=== PATIENT | female | born 1940 | race African-American/Black ===

== ENCOUNTER 2020-08-03 11:21 | Emergency (ER) | payer OTHER ==
--- NOTE | 2020-08-03 11:57 | PDOC ---
History of Present Illness - General Chief Complaint: Nausea/Vomiting Stated Complaint: NAUSEA/VOMITING Time Seen by Provider: 08/03/20 11:57 Past History - Medical History Allergies/Adverse Reactions: Allergies Allergy/AdvReac Type Severity Reaction Status Date / Time No Known Allergies Allergy Verified 05/05/19 07:54
[2020-08-03 12:05] VITALS: TEMP 97.9; BMI 39.1
--- NOTE | 2020-08-03 12:09 | PDOC ---
Attending Attestation - Resident Resident Name: Jesse Griggs - ED Attending Attestation I have performed the following: I have examined & evaluated the patient, The case was reviewed & discussed with the resident, I agree w/resident's findings & plan, Exceptions are as noted - HPI HPI: 08/03/20 12:08 80y F hx of htn, hl, cad, ckd, dm presents with n/v and feeling dizzy for the past few hours. Patient feeling well and waking up this morning. She took a dose of her tramadol at approx 7am and accidentally took another dose at 9am. Stgarting approx 9:30am she started to feel nauseus and alittle lightheaded. The patient denies any headache, neck pain, chest pain, breath, abdominal pain, diarrhea, blood per rectum, f/c, cough, focal numbness/tingling/weakness. she does note that the dizziness seems to worsen when she turns her head left/right but denies room spining sensation. Patient vomiting was nonbilious nonbloody. She has never felt similar symptoms in the past. PMD: Vilma - Physicial Exam PE: 08/03/20 12:22 GENERAL: The patient is awake, alert, and fully oriented, Nontoxic - in no acute distress. HEAD: Normocephalic, atraumatic. EYES: extraocular movements intact, sclera anicteric, conjunctiva clear. nystagmus noted when turning head b/l ENT: Normal voice, Moist mucous membranes. NECK: Normal range of motion, supple LUNGS: Breath sounds equal, clear to auscultation bilaterally. No wheezes, no rhonchi, no rales. HEART: Regular rate and rhythm, normal S1 and S2 without murmur, rub or gallop. ABDOMEN: Soft, nontender, No guarding, no rebound. No CVA tenderness EXTREMITIES: Normal range of motion, no edema. NEUROLOGICAL: No facial assymetry, Normal speech, rapid alternating movements b/l intact, moving all4 ext spontaneously and symmetrically, normal finger to nose PSYCH: Normal mood, normal affect. SKIN: Warm, Dry, normal turgor, - Medical Decision Making 08/03/20 12:23 ddx patient symptoms include but is not limited to medication side effect, consider vertigo, anemia, metabolic derangement, acs will obtain labs, ekg, cardiac profiole will give amado blanca 08/03/20 13:50 pt feeling improved. no more vomiting after her antiemetic. ashkan griffiny lightheadness, no notable nystagmus will dc with outpt fu Heart Score/ECG Review - ECG Impressions Comment:: 08/03/20 12:24 Twelve-lead EKG was performed and reviewed by me. There is normal sinus rhythm with a normal rate. rate of 68 The axis is normal. The intervals are normal. There is normal R wave progression nonspecific tw changes. Discharge - Discharge Information Problems reviewed: Yes Clinical Impression/Diagnosis: Nausea and vomiting Qualifiers: Vomiting type: unspecified Vomiting Intractability: non-intractable Qualified C ode(s): R11.2 - Nausea with vomiting, unspecified Condition: Stable Disposition: HOME - Admission No - Follow up/Referral Referrals: Johan Joseph MD [Primary Care Provider] - - Patient Discharge Instructions Patient Printed Discharge Instructions: DI for Nausea -- Adult, DI for Vomiting -- Adult Additional Instructions: You were seen with nausea and vomiting in the setting of recent tramadol use. Your labs were unconcerning, and your CT did not show any acute issues. Please follow up with your primary care doctor within one week. Return to the ER if you develop new or worsening symptoms. - Post Discharge Activity
--- OUTSIDE RECORDS SUMMARY | 2020-08-03 12:12 | XMS ---
:1940 Author Organization [facility] Care Team Providers Name Role Phone KarlaBrad bush Unavailable Unavailable Digiorno, Brad Unavailable Unavailable Digiorno, Brad Unavailable Unavailable Innabi, Prado Unavailable Unavailable Innabi, Prado Unavailable Unavailable Innabi, Prado Unavailable Unavailable Innabi, Prado Unavailable Unavailable Innabi, Prado Unavailable Unavailable Innabi, Prado Unavailable Unavailable Innabi, Prado Unavailable Unavailable Innabi, Prado Unavailable Unavailable Innabi, Prado Unavailable Unavailable Innabi, Prado Unavailable Unavailable Innabi, Prado Unavailable Unavailable Innabi, Prado Unavailable Unavailable Innabi, Prado Unavailable Unavailable Innabi, Prado Unavailable Unavailable Innabi, Prado Unavailable Unavailable Innabi, Prado Unavailable Unavailable Re-disclosure Warning The records that you are about to access may contain information from federally- assisted alcohol or drug abuse programs. If such information is present, then the following federally mandated warning applies: This information has been disclosed to you from records protected by federal confidentiality rules (42 CFR part 2). The federal rules prohibit you from making any further disclosure of this information unless further disclosure is expressly permitted by the written consent of the person to whom it pertains or as otherwise permitted by 42 CFR part 2. A general authorization for the release of medical or other information is NOT sufficient for this purpose. The Federal rules restrict any use of the information to criminally investigate or prosecute any alcohol or drug abuse patient.The records that you are about to access may contain highly sensitive health information, the redisclosure of which is protected by Article 27-F of the [place] State Public Health law. If you continue you may haveaccess to information: Regarding HIV / AIDS; Provided by facilities licensed or operated by the [facility] Office of Mental Health; or Provided by the [facility] Office for People With Developmental Disabilities. If such information is present, then the following [facility] mandated warning applies: This information has been disclosed to you from confidential records which are protected by state law. State law prohibits you from making any further disclosure of this information without the specific written consent of the person to whom it pertains, or as otherwise permitted by law. Any unauthorized further disclosure in violation of state law may result in a fine or nursing home sentence or both. A general authorization for the release of medical or other information is NOT sufficient authorization for further disclosure. Encounters Encounter Providers Location Date Indications Data Source(s ) Outpatient Attender: Johan Ordonez 07/10/2020 [facility] Inn[facility]: 11:[facility] Johan GARCES InnabiReferrer: Johan Joseph Attender: Brad 06/26/2020 [facility] EDT Office Attender: Brad Savage 06/26/2020 12:00:00 AM EDT [facility] ([facility]) Office Insurance Providers Payer name Policy type Policy ID Covered Covered libertarian's Policy P sury / Coverage libertarian ID relationship to Castellanos Inf ormation type castellanos UNITED O [id number] 01 [id number] HEALTHCARE MCARE OPD AARP MEDICARE [id number] [place] [id number] SP [id number] HEALTHCARE (MEDICARE) Problems, Conditions, and Diagnoses Code Display Name Description Problem Type Effective Dates Data Source(s) E55.9 Vitamin D VITAMIN D Problem 11/01/2019 [facility] ([facility] deficiency, DEFICIENCY, 12:00:00 AM EST [facility], unspecified UNSPECIFIED PC) M54.5 Low back pain LOW BACK PAIN Diagnosis 07/10/2020 [facility] 11:30:00 AM EDT Medical C enter M25.551 Pain in right hip PAIN IN RIGHT HIP Diagnosis 07/10/2020 [facility] 11:30:00 AM EDT Medical C enter Surgeries/Procedures Procedure Description Date Indications Data Source(s) Documentation of current 06/26/2020 [facility] ([facility] (procedure) 12:00:00 AM EDT [facility] ) Documentation of current 06/26/2020 [facility] ([facility] medications (procedure) 12:00:00 AM EDT [facility] hendricks ) OFFICE OUTPATIENT VISIT 06/26/2020 [facility] Documentation of current 11/01/2019 [facility] ([facility] medications (procedure) 12:00:00 AM EST Viri hendricks ) Documentation of current 11/01/2019 [facility] ([facility] medications (procedure) 12:00:00 AM EST [facility] he[facility] ) Documentation of current 11/01/2019 [facility] ([facility] medications (procedure) 12:00:00 AM EST [facility] hendricks ) Documentation of current 11/01/2019 [facility] ([facility] medications (procedure) 12:00:00 AM EST Vir[facility] hendricks ) OFFICE OUTPATIENT VISIT 11/01/2019 [facility] ([facility] 15 MINUTES 12:00:00 AM [facility], ) Social History Code Duration Value Status Description Data Source(s ) Smoking 06/26/2020 quit tobacco use completed quit tobacco use [facility] (St 12:00:00 AM EDT 1971 (has smoked 1970 (has smok ed [facility], "occasionally" "occasionally" ) prior) denies prior) denies EtOH EtOH 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, 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, 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 Smoking 06/26/2020 Unknown if ever completed Unknown if ever [facility] (St 12:00:00 AM EDT smoked smoked [facility] ) Vital Signs ID Date Data Source UNK Name Value Range Interpretation Code Description Data Source(s) Heart rate 72 /min 72 /min [facility] Respiratory rate 18 /min 18 /min [facility] ( [facility], ) Body mass index 39.8 kg/m2 39.8 kg/m2 [facility] ([facility] t [facility] (BMI) [Ratio] Medical, ) Diastolic blood 66 mm[Hg] 66 mm[Hg] [facility] ([facility], ) Systolic blood 130 mm[Hg] 130 mm[Hg] [facility] ([facility], ) Body [facility] 232 lb [facility] Body height 64 in 64 in [facility] ([facility] Heart rate 78 /min 78 /min [facility] ([facility]) Respiratory rate 14 /min 14 /min [facility] ( [facility]) Body mass index 38.3 kg/m2 38.3 kg/m2 [facility] ([facility] (BMI) [Ratio] [facility] ) Diastolic blood 78 mm[Hg] 78 mm[Hg] [facility] Systolic blood 130 mm[Hg] 130 mm[Hg] [facility] ([facility], ) Body weight 223 lb 223 lb [facility], ) Body height 64 in 64 in [facility] ([facility], )
[2020-08-03] MEDS ORDERED: ONDANSETRON 4 MG/2 ML VIAL IVPUSH ONE (12:13)
--- NOTE | 2020-08-03 12:20 | PDOC ---
History of Present Illness - General Chief Complaint: Nausea/Vomiting Stated Complaint: NAUSEA/VOMITING Time Seen by Provider: 08/03/20 11:57 - History of Present Illness Initial Comments: HPI: 08/03/20 12:14 80 yo F PMH HTN, HLD, IDDM, CKD, CAD s/p NC (1992, no stent), arthritis, presenting with nausea and vomiting. Daughter present in the room. Ms. Burleson notes that she was recently started on tramadol on Thursday for her arthritis up to 4 times a day, but she had only been taking one pill a day until today. This morning, she took a pill at 0700 and then another at 0900 because she forgot that she took the first pill. Subsequently became nauseous and has had two episodes of nbnb vomiting. Further complains of lightheadedness. Notes that she has chronic constipation, but had her last bowel movement yesterday. Denies CP, SOB, DONAHUE, abd pain, urinary symptoms. ROS: GENERAL/CONSTITUTIONAL: denies fever, chills, diaphoresis, generalized weakness HEAD, EYES, EARS, NOSE AND THROAT: denies rhinorrhea, nasal congestion, throat pain, throat swelling NEUROLOGIC: denies headache, focal weakness, dizziness, unsteady gait, seizure, mental status changes CARDIOVASCULAR: endorses lightheadedness. Denies chest pain, syncope, palpitations, irregular heart rate, peripheral edema RESPIRATORY: denies cough, shortness of breath, dyspnea with exertion GASTROINTESTINAL: endorses chronic constipation. Denies abdominal pain, abdominal distension, nausea, vomiting, diarrhea, melena, hematochezia GENITOURINARY: denies dysuria, frequency, urgency MUSCULOSKELETAL: denies myalgia, arthralgia, joint swelling, back pain, neck pain SKIN: denies rash, itching PE: Gen: well-developed, well-nourished, NAD Neuro: AAOX4, CN II-XII intact, FTN intact, EOMI, small pupils HEENT: atraumatic, normocephalic Neck: trachea midline, supple CV: regular rate, regular rhythm, no murmurs, rubs, or gallops Pulm: CTA b/l, no wheezing Abd: soft, non-distended, non-tender MSK: full ROM, intact pulses Extr: no edema, no deformities Skin: warm, dry MDM: Concern for medication side effect v ACS v intracerebral pathology. - CBC, CMP - trop - CXR - head CT - Zofran - reassess EKG normal sinus at 68 bpm, NM 180, QRS 72, QTc 414, isolated inverted T waves in III 08/03/20 13:07 CXR without acute pathology. 08/03/20 13:26 WBC 11.7, otherwise unremarkable. 08/03/20 13:46 BUN 23.1, Cr 1.6. Glucose 200. Trop negative. CMP otherwise unremarkable. Per daughter, patient has known GFR of 30. Will f/u CT head, symptomatic improvement. 08/03/20 13:57 Patient reassessed, feeling much improved. Will f/u CT scan. Assuming scan is negative, will plan to dc for further outpatient management, precautions for tramadol use. 08/03/20 15:16 CT head: [id number] volume loss without CT evidence of acute intracranial pathology. Will dc for further outpatient management. Past History - Medical History Allergies/Adverse Reactions: Allergies Allergy/AdvReac Type Severity Reaction Status Date / Time No Known Allergies Allergy Verified 08/03/20 12:04 COPD: No HTN: Yes - Reproductive History Is Patient Now?: No - Psycho-Social/Smoking History Smoking History: Unknown if ever smoked - Substance Abuse Hx (Audit-C & DAST Scrn) In the last yr the pt used illegal drug/Rx for NonMed reason: No Score: Yes response is considered Positive: 0 Screen Result (Positive result requires Nsg. DAST-10): Negative *Physical Exam - Vital Signs Last Vital Signs Temp Pulse Resp BP Pulse Ox 97.9 F 62 16 146/78 100 08/03/20 11:25 08/03/20 11:25 08/03/20 11:25 08/03/20 11:25 08/03/20 11:25 ED Treatment Course - LABORATORY CBC & Chemistry Diagram: 08/03/20 13:00 08/03/20 13:00 - RADIOLOGY Radiology Studies Ordered: Category Date Time Status HEAD CT WITHOUT CONTRAST [CT] Stat CT Scan 08/03/20 12:13 Ordered CHEST X-RAY PORTABLE* [RAD] Stat Radiology 08/03/20 12:13 Ordered Discharge - Discharge Information Problems reviewed: Yes Clinical Impression/Diagnosis: Nausea and vomiting Qualifiers: Vomiting type: unspecified Vomiting Intractability: non-intractable Qualified Code(s): R11.2 - Nausea with vomiting, unspecified Condition: Stable Disposition: HOME - Admission No - Follow up/Referral Referrals: Johan Joseph MD [Primary Care Provider] - - Patient Discharge Instructions Patient Printed Discharge Instructions: DI for Nausea -- Adult, DI for Vomiting -- Adult Additional Instructions: You were seen with nausea and vomiting in the setting of recent tramadol use. Y our labs were unconcerning, and your CT did not show any acute issues. Please follow up with your primary care doctor within one week. Return to the ER if you develop new or worsening symptoms. - Post Discharge Activity
[2020-08-03 13:11] LABS: BASO % 0.7 % (0-2.0); EOS % 0.7 % (0-4.5); HEMATOCRIT 36.5 % (32.4-45.2); HEMOGLOBIN 12.2 GM/dL (10.7-15.3); LYMPH % 18.3 % (8-40); MCH 30.1 pg (25.7-33.7); MCHC 33.4 g/dl (32.0-36.0); MEAN CELL VOLUME 89.9 fl (80-96); MEAN PLT VOLUME 10.1 fl (7.5-11.1); MONO % 5.3 % (3.8-10.2); PLATELET COUNT 272 K/MM3 (134-434); RBC 4.06 M/mm3 (3.60-5.2); RDW 14.4 % (11.6-15.6); WHITE BLOOD COUNT 11.7 K/mm3 (4.0-10.0)
[2020-08-03 13:45] LABS: ALBUMIN 3.4 g/dl (3.4-5.0); ALK PHOS 125 U/L (45-117); ANION GAP 6 MMOL/L (8-16); BILIRUBIN,TOTAL 0.3 mg/dL (0.2-1); BLOOD UREA NITROGEN 23.1 mg/dL (7-18); CALCIUM 9.2 mg/dL (8.5-10.1); CHLORIDE 104 mmol/L (98-107); CO2 27 mmol/L (21-32); CREATININE 1.6 mg/dL (0.55-1.3); GLUCOSE,RANDOM 200 mg/dL (74-106); POTASSIUM 4.9 mmol/L (3.5-5.1); SGOT/AST 26 U/L (15-37); SGPT/ALT 26 U/L (13-61); SODIUM 138 mmol/L (136-145); TOT PROT 8.1 g/dl (6.4-8.2)
--- NOTE | 2020-08-03 14:46 | EKG ---
Test Reason : Blood Pressure : / mmHG Vent. Rate : 068 BPM Atrial Rate : 068 BPM P-R Int : 180 ms QRS Dur : 072 ms QT Int : 390 ms P-R-T Axes : 069 006 004 degrees QTc Int : 414 ms NORMAL SINUS RHYTHM MINIMAL VOLTAGE CRITERIA FOR LVH, MAY BE NORMAL VARIANT WHEN COMPARED WITH ECG OF 20-MAY-2010 07:44, NONSPECIFIC T WAVE ABNORMALITY, WORSE IN ANTERIOR LEADS Confirmed by LEÓN ABBASI MD ([id number]) on 08/03/2020 2:46:37 PM Referred By: Confirmed By:LEÓN ABBASI MD
[2020-08-03 15:28] VITALS: BP 134/68; PULSE 60
== END 2020-08-03 15:28 | disposition home or self-care (01) ==
LOC: JER 11:21
PROC: 3E033GC Introduction of Other Therapeutic Substance into Peripheral Vein, Percutaneous Approach (ICD-10-PCS; principal; 2020-08-03)
DX: R11.2 Nausea with vomiting, unspecified (principal)
CPT/HCPCS: 36415; 70450-TC; 71045-TC-FY; 80053; 82550; 84484; 85025; 93005; 93010; 99285-25

== ENCOUNTER 2020-10-15 12:42 | Inpatient (IN) | payer OTHER ==
[2020-10-15] MEDS ORDERED: SODIUM CHLORIDE 0.9% 500 ML INFUS.BAG IV ONE (14:18)
[2020-10-15] MEDS ORDERED: AZITHROMYCIN IVPB 500 MG/250 ML BAG IVPB ONE (14:28)
[2020-10-15] MEDS ORDERED: DEXAMETHASONE SOD PHOSPHATE 4 MG/1 ML VIAL ONE (14:28)
[2020-10-15] MEDS ORDERED: CEFTRIAXONE 1,000 MG in DEXTROSE 5%-WATER - 50 ML IVPB ONE (15:11)
[2020-10-15] MEDS ORDERED: AZITHROMYCIN IVPB 500 MG in DEXTROSE 5%-WATER - 250 ML IVPB ONE (15:12)
[2020-10-15 15:19] LABS: VENOUS BASE EXCESS -2.4 mmol/L (-2-2); VENOUS O2 SATURATION 63.1 % (70-80); VENOUS PCO2 45.6 mmHg (38-52); VENOUS PH 7.333 (7.310-7.410)
[2020-10-15 15:29] LABS: BASO % 0.2 % (0-2.0); EOS % 0.1 % (0-4.5); HEMATOCRIT 34.2 % (32.4-45.2); HEMOGLOBIN 11.4 GM/dL (10.7-15.3); LYMPH % 15.4 % (8-40); MCHC 33.5 g/dl (32.0-36.0); MEAN CELL VOLUME 89.6 fl (80-96); MEAN PLT VOLUME 9.5 fl (7.5-11.1); MONO % 7.5 % (3.8-10.2); NEUT % 76.8 % (42.8-82.8); PLATELET COUNT 305 K/MM3 (134-434); RBC 3.81 M/mm3 (3.60-5.2); RDW 14.1 % (11.6-15.6); WHITE BLOOD COUNT 11.9 K/mm3 (4.0-10.0)
[2020-10-15 15:37] LABS: CHLORIDE 104 mmol/L (98-107); SODIUM 139 mmol/L (136-145)
[2020-10-15 15:38] LABS: INR 1.16 (0.83-1.09); PROTHROMBIN TIME (PATIENT) 14.2 SEC (9.7-13.0)
[2020-10-15 15:39] LABS: CALCIUM 8.5 mg/dL (8.5-10.1)
[2020-10-15 15:40] LABS: ACTIVATED PTT 25.8 SECONDS (25.2-36.5); ALBUMIN 2.7 g/dl (3.4-5.0); ANION GAP 11 MMOL/L (8-16); BLOOD UREA NITROGEN 58.9 mg/dL (7-18); CO2 24 mmol/L (21-32); GLUCOSE,RANDOM 179 mg/dL (74-106)
[2020-10-15 15:42] LABS: CREATININE 2.5 mg/dL (0.55-1.3)
[2020-10-15 15:43] LABS: SGOT/AST 107 U/L (15-37); SGPT/ALT 66 U/L (13-61)
[2020-10-15 15:44] LABS: BILIRUBIN,TOTAL 0.4 mg/dL (0.2-1); TOT PROT 7.2 g/dl (6.4-8.2)
[2020-10-15 15:45] LABS: ALK PHOS 70 U/L (45-117)
[2020-10-15 16:02] LABS: N-TERMINAL BNP 146.7 pg/ml (5-450)
[2020-10-15] MEDS ORDERED: CEFTRIAXONE 1 GM/50 ML BAG ONE (16:47)
[2020-10-15] MEDS ORDERED: PT OWN MED DRAWER 7, Y5N ONE (16:47)
[2020-10-15] MEDS: DEXAMETHASONE SOD PHOSPHATE 4 MG/1 ML VIAL IVPUSH SCH (17:18)
[2020-10-15] MEDS ORDERED: ELECTROLYTE-148 SOLN 1,000 ML IV SCH (17:30)
[2020-10-15] MEDS ORDERED: ZINC SULFATE 220 MG CAPSULE (FP) ONE (22:18)
[2020-10-15] MEDS ORDERED: ASCORBIC ACID 500 MG TABLET (FP) ONE (22:18)
[2020-10-15] MEDS ORDERED: CARVEDILOL 12.5 MG TABLET (FP) ONE (22:18)
[2020-10-15] MEDS ORDERED: HEPARIN NA (PORCINE) 5,000 UNITS/ML 1ML VIAL ONE (22:19)
[2020-10-15] MEDS ORDERED: GABAPENTIN 100 MG CAPSULE ONE (22:19)
[2020-10-15] MEDS: CARVEDILOL 25 MG TABLET (FP) PO SCH (23:27)
[2020-10-15] MEDS: GABAPENTIN 100 MG CAPSULE PO SCH (23:27)
[2020-10-15] MEDS: ZINC SULFATE 220 MG CAPSULE (FP) PO SCH (23:27)
[2020-10-15] MEDS: HEPARIN NA (PORCINE) 5,000 UNITS/ML 1ML VIAL SQ SCH (23:27)
[2020-10-15] MEDS: ROSUVASTATIN CA 20 MG TABLET PO SCH (23:27)
[2020-10-15] MEDS: ASCORBIC ACID 500 MG TABLET (FP) PO SCH (23:28)
[2020-10-16] MEDS ORDERED: GABAPENTIN 100 MG CAPSULE ONE ×2 (06:06→09:53)
[2020-10-16] MEDS ORDERED: HEPARIN NA (PORCINE) 5,000 UNITS/ML 1ML VIAL ONE ×2 (06:06→09:53)
[2020-10-16] MEDS: HEPARIN NA (PORCINE) 5,000 UNITS/ML 1ML VIAL SQ SCH (06:15)
[2020-10-16] MEDS: GABAPENTIN 100 MG CAPSULE PO SCH ×3 (06:15→21:51)
[2020-10-16 07:17] LABS: INR 1.2 (0.83-1.09); PROTHROMBIN TIME (PATIENT) 14.7 SEC (9.7-13.0)
[2020-10-16 07:18] LABS: ACTIVATED PTT 26.6 SECONDS (25.2-36.5); HEMATOCRIT 33.9 % (32.4-45.2); HEMOGLOBIN 11.4 GM/dL (10.7-15.3); LYMPH % 13.9 % (8-40); MCH 30.2 pg (25.7-33.7); MCHC 33.7 g/dl (32.0-36.0); MEAN CELL VOLUME 89.7 fl (80-96); MEAN PLT VOLUME 9.5 fl (7.5-11.1); NEUT % 81.1 % (42.8-82.8); PLATELET COUNT 340 K/MM3 (134-434); RBC 3.78 M/mm3 (3.60-5.2); RDW 13.8 % (11.6-15.6); WHITE BLOOD COUNT 6.8 K/mm3 (4.0-10.0)
[2020-10-16 07:23] LABS: CHLORIDE 100 mmol/L (98-107); SODIUM 133 mmol/L (136-145)
[2020-10-16 07:34] LABS: ALBUMIN 2.6 g/dl (3.4-5.0); ANION GAP 10 MMOL/L (8-16); BLOOD UREA NITROGEN 60.6 mg/dL (7-18); CALCIUM 8.8 mg/dL (8.5-10.1); CO2 22 mmol/L (21-32); GLUCOSE,RANDOM 347 mg/dL (74-106); MAGNESIUM 2.8 mg/dL (1.8-2.4)
[2020-10-16 07:37] LABS: PHOSPHOROUS 4.6 mg/dL (2.5-4.9); SGOT/AST 88 U/L (15-37)
[2020-10-16 07:38] LABS: CREATININE 2.3 mg/dL (0.55-1.3)
[2020-10-16 07:39] LABS: BILIRUBIN,TOTAL 0.8 mg/dL (0.2-1); SGPT/ALT 67 U/L (13-61); TOT PROT 7.4 g/dl (6.4-8.2)
[2020-10-16 07:41] LABS: ALK PHOS 77 U/L (45-117)
[2020-10-16 07:54] LABS: LDH 464 U/L (84-246)
[2020-10-16] MEDS ORDERED: ASCORBIC ACID 500 MG TABLET (FP) ONE (09:52)
[2020-10-16] MEDS ORDERED: CARVEDILOL 12.5 MG TABLET (FP) ONE (09:52)
[2020-10-16] MEDS ORDERED: ZINC SULFATE 220 MG CAPSULE (FP) ONE (09:52)
[2020-10-16] MEDS ORDERED: amLODIPine BESYLATE 5 MG TABLET (FP) ONE (09:52)
[2020-10-16] MEDS ORDERED: CEFTRIAXONE 1 GM/50 ML BAG ONE (09:53)
[2020-10-16] MEDS ORDERED: DEXAMETHASONE SOD PHOSPHATE 4 MG/1 ML VIAL ONE (09:53)
[2020-10-16] MEDS ORDERED: AZITHROMYCIN IVPB 500 MG/250 ML BAG IVPB ONE (09:53)
[2020-10-16] MEDS ORDERED: FAMOTIDINE 20 MG/50 ML IVPB 20 MG/50 ML MG IVPB ONE (09:54)
[2020-10-16] MEDS ORDERED: FAMOTIDINE 20 MG/50 ML IVPB 20 MG/50 ML MG IVPB SCH (10:00)
[2020-10-16] MEDS ORDERED: FUROSEMIDE 20 MG TABLET (FP) PO SCH (10:00)
[2020-10-16] MEDS ORDERED: VALSARTAN 160 MG TABLET PO SCH (10:00)
[2020-10-16] MEDS ORDERED: PATIENT'S OWN MEDICATION (NON-FORMULARY) (Amlodipine Bes/Olmesartan Med [Amlodipine-Olmesa PO SCH (10:00)
[2020-10-16] MEDS ORDERED: INSULIN (LEVEMIR) 100 UNITS/ML UNITS SQ SCH (10:00)
[2020-10-16] MEDS: amLODIPine BESYLATE 5 MG TABLET (FP) PO SCH (10:30)
[2020-10-16] MEDS: ZINC SULFATE 220 MG CAPSULE (FP) PO SCH ×2 (10:30→21:51)
[2020-10-16] MEDS: CARVEDILOL 25 MG TABLET (FP) PO SCH ×2 (10:30→21:51)
[2020-10-16] MEDS: DEXAMETHASONE SOD PHOSPHATE 4 MG/1 ML VIAL IVPUSH SCH (10:30)
[2020-10-16] MEDS: AZITHROMYCIN IVPB 500 MG/250 ML BAG IVPB SCH (10:31)
[2020-10-16] MEDS: ASCORBIC ACID 500 MG TABLET (FP) PO SCH ×2 (10:31→21:51)
[2020-10-16] MEDS: FAMOTIDINE 20 MG/50 ML IVPB 20 MG/50 ML MG IVPB SCH (10:31)
[2020-10-16] MEDS: CEFTRIAXONE 1 GM in DEXTROSE 5%-WATER - 50 ML IVPB SCH (10:31)
[2020-10-16] MEDS ORDERED: INSULIN (LEVEMIR) 100 UNITS/ML UNITS SQ ONE (11:50)
[2020-10-16] MEDS ORDERED: ENOXAPARIN NA (PORCINE) 100 MG/1 ML DISP.SYRIN SQ ONE (12:48)
[2020-10-16] MEDS: INSULIN SLIDING SCALE (NOVOLOG) 1 VIAL SQ SCH ×3 (12:53→21:52)
[2020-10-16] MEDS: ENOXAPARIN NA (PORCINE) 100 MG/1 ML DISP.SYRIN SQ SCH ×2 (12:54→21:53)
[2020-10-16] MEDS ORDERED: SODIUM CHLORIDE 1,000 ML IV SCH (13:15)
[2020-10-16] MEDS ORDERED: VANCOMYCIN 1 GM in D5W (PRE-DOCKED) 1,000 MG/250 ML IVPB ONE (13:55)
[2020-10-16] MEDS ORDERED: VANCOMYCIN HCL 1,250 MG in DEXTROSE 5%-WATER - 250 ML IVPB ONE (15:00)
[2020-10-16] MEDS ORDERED: SODIUM ZIRCONIUM CYCLOSILICATE (LOKELMA) 5 GM PACKET PO ONE (15:49)
[2020-10-16] MEDS ORDERED: SODIUM CHLORIDE 0.45% 1,000 ML IV SCH (16:00)
[2020-10-16 19:33] LABS: EPI CELLS 35 /uL (0-25.1); HYALINE CASTS 5 /uL (0-3.1); URINE APPEARANCE CLOUDY; URINE BACTERIA 360 /uL (0-1359); URINE BILIRUBIN NEGATIVE (NEGATIVE); URINE COLOR YELLOW; URINE GLUCOSE (UA) 2+ (NEGATIVE); URINE KETONE TRACE (NEGATIVE); URINE LEUK ESTERASE NEGATIVE (NEGATIVE); URINE NITRITE NEGATIVE (NEGATIVE); URINE PROTEIN 2+ (NEGATIVE); URINE RBC 13 /uL (0-23.9); URINE UROBILINOGEN 0.2 mg/dL (0.2-1.0); URINE WBC 22 /uL (0-25.8)
[2020-10-16] MEDS: ROSUVASTATIN CA 20 MG TABLET PO SCH (21:51)
[2020-10-16] MEDS: INSULIN (LEVEMIR) 100 UNITS/ML UNITS SQ SCH (21:52)
[2020-10-17] MEDS ORDERED: INSULIN (NOVOLOG) ASPART 100 UNITS/ML 10ML VIAL SQ ONE (01:10)
[2020-10-17] MEDS: INSULIN SLIDING SCALE (NOVOLOG) 1 VIAL SQ SCH ×4 (06:16→22:06)
[2020-10-17] MEDS: GABAPENTIN 100 MG CAPSULE PO SCH ×3 (06:16→22:05)
[2020-10-17] MEDS: INSULIN (LEVEMIR) 100 UNITS/ML UNITS SQ SCH ×3 (06:16→22:05)
[2020-10-17 08:09] LABS: BASO % 0.2 % (0-2.0); HEMATOCRIT 32.5 % (32.4-45.2); HEMOGLOBIN 10.9 GM/dL (10.7-15.3); LYMPH % 9.8 % (8-40); MCH 29.5 pg (25.7-33.7); MCHC 33.6 g/dl (32.0-36.0); MEAN CELL VOLUME 87.7 fl (80-96); MEAN PLT VOLUME 9.6 fl (7.5-11.1); MONO % 7.2 % (3.8-10.2); NEUT % 82.8 % (42.8-82.8); PLATELET COUNT 390 K/MM3 (134-434); RBC 3.71 M/mm3 (3.60-5.2); RDW 14.1 % (11.6-15.6); WHITE BLOOD COUNT 13.1 K/mm3 (4.0-10.0)
[2020-10-17 08:22] LABS: CALCIUM 8.3 mg/dL (8.5-10.1)
[2020-10-17 08:23] LABS: ALBUMIN 2.5 g/dl (3.4-5.0); BLOOD UREA NITROGEN 58.8 mg/dL (7-18); MAGNESIUM 2.8 mg/dL (1.8-2.4)
[2020-10-17 08:26] LABS: CREATININE 2.1 mg/dL (0.55-1.3); PHOSPHOROUS 2.7 mg/dL (2.5-4.9)
[2020-10-17 08:27] LABS: BILIRUBIN,TOTAL 0.3 mg/dL (0.2-1); TOT PROT 6.8 g/dl (6.4-8.2)
[2020-10-17] MEDS ORDERED: DEXTROSE 5%-WATER - 50 ML IVPB ONE ×2 (09:19→12:26)
[2020-10-17] MEDS ORDERED: cefTRIAXone SODIUM 1 GM VIAL ONE ×2 (09:19→12:26)
[2020-10-17] MEDS ORDERED: PT OWN MED DRAWER 7, Y5N ONE (09:19)
[2020-10-17 09:24] LABS: ERYTHROCYTE SEDIMENTATION RATE 99 mm/hr (0-30)
[2020-10-17] MEDS: ASCORBIC ACID 500 MG TABLET (FP) PO SCH ×2 (09:34→22:07)
[2020-10-17] MEDS: amLODIPine BESYLATE 5 MG TABLET (FP) PO SCH (09:34)
[2020-10-17] MEDS: ZINC SULFATE 220 MG CAPSULE (FP) PO SCH ×2 (09:34→22:05)
[2020-10-17] MEDS: CARVEDILOL 25 MG TABLET (FP) PO SCH ×2 (09:34→22:05)
[2020-10-17] MEDS: DEXAMETHASONE SOD PHOSPHATE 4 MG/1 ML VIAL IVPUSH SCH (09:34)
[2020-10-17] MEDS: ENOXAPARIN NA (PORCINE) 100 MG/1 ML DISP.SYRIN SQ SCH ×2 (09:35→22:07)
[2020-10-17] MEDS: FAMOTIDINE 20 MG/50 ML IVPB 20 MG/50 ML MG IVPB SCH (09:39)
[2020-10-17] MEDS: CEFTRIAXONE 1 GM in DEXTROSE 5%-WATER - 50 ML IVPB SCH (10:21)
[2020-10-17] MEDS: AZITHROMYCIN IVPB 500 MG/250 ML BAG IVPB SCH (11:05)
[2020-10-17] MEDS ORDERED: CEFTRIAXONE 1 GM in DEXTROSE 5%-WATER - 50 ML IVPB ONE ×2 (11:27→12:30)
[2020-10-17] MEDS ORDERED: INSULIN (LEVEMIR) 100 UNITS/ML UNITS SQ ONE (11:45)
[2020-10-17] MEDS: ROSUVASTATIN CA 20 MG TABLET PO SCH (22:05)
[2020-10-18] MEDS: INSULIN (LEVEMIR) 100 UNITS/ML UNITS SQ SCH ×2 (06:33→21:48)
[2020-10-18] MEDS: GABAPENTIN 100 MG CAPSULE PO SCH ×3 (06:33→21:48)
[2020-10-18] MEDS: INSULIN SLIDING SCALE (NOVOLOG) 1 VIAL SQ SCH ×4 (06:33→21:51)
[2020-10-18 07:49] LABS: BASO % 0.1 % (0-2.0); HEMATOCRIT 31.4 % (32.4-45.2); HEMOGLOBIN 10.5 GM/dL (10.7-15.3); LYMPH % 7.6 % (8-40); MCH 29.5 pg (25.7-33.7); MCHC 33.5 g/dl (32.0-36.0); MEAN CELL VOLUME 88.2 fl (80-96); MEAN PLT VOLUME 9.4 fl (7.5-11.1); MONO % 6.4 % (3.8-10.2); NEUT % 85.9 % (42.8-82.8); PLATELET COUNT 409 K/MM3 (134-434); RBC 3.56 M/mm3 (3.60-5.2); WHITE BLOOD COUNT 15.9 K/mm3 (4.0-10.0)
[2020-10-18 08:00] LABS: CHLORIDE 108 mmol/L (98-107)
[2020-10-18 08:06] LABS: CALCIUM 8.4 mg/dL (8.5-10.1); GLUCOSE,RANDOM 210 mg/dL (74-106)
[2020-10-18 08:07] LABS: ALBUMIN 2.5 g/dl (3.4-5.0); BLOOD UREA NITROGEN 60.8 mg/dL (7-18); CO2 25 mmol/L (21-32); MAGNESIUM 2.8 mg/dL (1.8-2.4)
[2020-10-18 08:10] LABS: BILIRUBIN,TOTAL 0.3 mg/dL (0.2-1); PHOSPHOROUS 3.2 mg/dL (2.5-4.9); SGOT/AST 47 U/L (15-37); TOT PROT 6.7 g/dl (6.4-8.2)
[2020-10-18 08:12] LABS: ALK PHOS 73 U/L (45-117)
[2020-10-18 08:17] LABS: ANION GAP 7 MMOL/L (8-16); LDH 392 U/L (84-246); SGPT/ALT 47 U/L (13-61); SODIUM 140 mmol/L (136-145)
[2020-10-18 08:51] LABS: ERYTHROCYTE SEDIMENTATION RATE 102 mm/hr (0-30)
[2020-10-18] MEDS: amLODIPine BESYLATE 5 MG TABLET (FP) PO SCH (10:06)
[2020-10-18] MEDS: DEXAMETHASONE SOD PHOSPHATE 4 MG/1 ML VIAL IVPUSH SCH (10:06)
[2020-10-18] MEDS: ZINC SULFATE 220 MG CAPSULE (FP) PO SCH ×2 (10:06→21:48)
[2020-10-18] MEDS: CARVEDILOL 25 MG TABLET (FP) PO SCH ×2 (10:06→21:48)
[2020-10-18] MEDS: ENOXAPARIN NA (PORCINE) 100 MG/1 ML DISP.SYRIN SQ SCH ×2 (10:06→21:48)
[2020-10-18] MEDS: FAMOTIDINE 20 MG/50 ML IVPB 20 MG/50 ML MG IVPB SCH (10:07)
[2020-10-18] MEDS ORDERED: DEXTROSE 5%-WATER 100 ML IVPB ONE (10:49)
[2020-10-18] MEDS: ASCORBIC ACID 500 MG TABLET (FP) PO SCH ×2 (11:05→21:48)
[2020-10-18] MEDS: CEFTRIAXONE 2 GM in DEXTROSE 5%-WATER 2 GM/100 ML BAG IVPB SCH (11:05)
[2020-10-18] MEDS ORDERED: INSULIN (LEVEMIR) 100 UNITS/ML UNITS SQ ONE (12:12)
[2020-10-18] MEDS ORDERED: VANCOMYCIN 1 GM in D5W (PRE-DOCKED) 1,000 MG/250 ML IVPB ONE (14:30)
[2020-10-18] MEDS ORDERED: Insulin (LOG) Aspart 100 UNITS/ML VIAL SQ SCH (16:30)
[2020-10-18] MEDS: ROSUVASTATIN CA 20 MG TABLET PO SCH (21:48)
[2020-10-19] MEDS ORDERED: PT OWN MED DRAWER 7, Y5N ONE (06:11)
[2020-10-19] MEDS: GABAPENTIN 100 MG CAPSULE PO SCH ×3 (06:17→21:12)
[2020-10-19 06:44] LABS: BASO % 0.1 % (0-2.0); HEMATOCRIT 32.6 % (32.4-45.2); HEMOGLOBIN 10.9 GM/dL (10.7-15.3); LYMPH % 7.2 % (8-40); MCH 29.7 pg (25.7-33.7); MCHC 33.4 g/dl (32.0-36.0); MEAN CELL VOLUME 88.8 fl (80-96); MEAN PLT VOLUME 9.4 fl (7.5-11.1); MONO % 6.8 % (3.8-10.2); NEUT % 85.9 % (42.8-82.8); PLATELET COUNT 453 K/MM3 (134-434); RBC 3.68 M/mm3 (3.60-5.2); RDW 13.8 % (11.6-15.6); WHITE BLOOD COUNT 14.1 K/mm3 (4.0-10.0)
[2020-10-19] MEDS: INSULIN (NOVOLOG) ASPART 100 UNITS/ML 10ML VIAL SQ SCH ×3 (06:51→17:00)
[2020-10-19] MEDS: INSULIN SLIDING SCALE (NOVOLOG) 1 VIAL SQ SCH ×4 (06:51→22:18)
[2020-10-19 07:09] LABS: ALBUMIN 2.4 g/dl (3.4-5.0); BLOOD UREA NITROGEN 51.7 mg/dL (7-18); CALCIUM 8.8 mg/dL (8.5-10.1)
[2020-10-19 07:13] LABS: PHOSPHOROUS 2.9 mg/dL (2.5-4.9)
[2020-10-19 07:14] LABS: BILIRUBIN,TOTAL 0.2 mg/dL (0.2-1); TOT PROT 6.6 g/dl (6.4-8.2)
[2020-10-19] MEDS: ZINC SULFATE 220 MG CAPSULE (FP) PO SCH ×2 (09:46→21:11)
[2020-10-19] MEDS: ASCORBIC ACID 500 MG TABLET (FP) PO SCH ×2 (09:46→21:11)
[2020-10-19] MEDS: FAMOTIDINE 20 MG/50 ML IVPB 20 MG/50 ML MG IVPB SCH (09:46)
[2020-10-19] MEDS: amLODIPine BESYLATE 5 MG TABLET (FP) PO SCH (09:46)
[2020-10-19] MEDS: CARVEDILOL 25 MG TABLET (FP) PO SCH ×2 (09:46→21:11)
[2020-10-19] MEDS: DEXAMETHASONE SOD PHOSPHATE 4 MG/1 ML VIAL IVPUSH SCH (09:47)
[2020-10-19] MEDS: ENOXAPARIN NA (PORCINE) 100 MG/1 ML DISP.SYRIN SQ SCH ×2 (09:47→21:15)
[2020-10-19] MEDS: DOCUSATE SODIUM 100 MG CAPSULE (FP) PO PRN (09:59)
[2020-10-19] MEDS ORDERED: DEXTROSE 5%-WATER 100 ML IVPB ONE (10:26)
[2020-10-19] MEDS: CEFTRIAXONE 2 GM in DEXTROSE 5%-WATER 2 GM/100 ML BAG IVPB SCH (10:31)
[2020-10-19] MEDS: INSULIN (LEVEMIR) 100 UNITS/ML UNITS SQ SCH ×2 (10:32→21:11)
[2020-10-19 11:18] LABS: ERYTHROCYTE SEDIMENTATION RATE 93 mm/hr (0-30)
[2020-10-19] MEDS: ROSUVASTATIN CA 20 MG TABLET PO SCH (21:12)
[2020-10-20] MEDS: INSULIN (NOVOLOG) ASPART 100 UNITS/ML 10ML VIAL SQ SCH ×4 (06:19→17:32)
[2020-10-20] MEDS: GABAPENTIN 100 MG CAPSULE PO SCH ×3 (06:19→21:45)
[2020-10-20] MEDS: INSULIN SLIDING SCALE (NOVOLOG) 1 VIAL SQ SCH ×4 (06:20→23:25)
[2020-10-20 06:38] LABS: BASO % 0.2 % (0-2.0); HEMATOCRIT 32.3 % (32.4-45.2); HEMOGLOBIN 10.9 GM/dL (10.7-15.3); LYMPH % 10.8 % (8-40); MCH 30.1 pg (25.7-33.7); MCHC 33.6 g/dl (32.0-36.0); MEAN CELL VOLUME 89.5 fl (80-96); MEAN PLT VOLUME 9.3 fl (7.5-11.1); MONO % 7.6 % (3.8-10.2); NEUT % 81.4 % (42.8-82.8); PLATELET COUNT 426 K/MM3 (134-434); RBC 3.61 M/mm3 (3.60-5.2); RDW 14.1 % (11.6-15.6); WHITE BLOOD COUNT 12.7 K/mm3 (4.0-10.0)
[2020-10-20 07:07] LABS: ALBUMIN 2.4 g/dl (3.4-5.0); BLOOD UREA NITROGEN 47.7 mg/dL (7-18); CALCIUM 8.2 mg/dL (8.5-10.1); MAGNESIUM 2.7 mg/dL (1.8-2.4)
[2020-10-20 07:10] LABS: PHOSPHOROUS 3.2 mg/dL (2.5-4.9)
[2020-10-20 07:11] LABS: CREATININE 1.8 mg/dL (0.55-1.3)
[2020-10-20 07:12] LABS: BILIRUBIN,TOTAL 0.3 mg/dL (0.2-1); TOT PROT 6.5 g/dl (6.4-8.2)
[2020-10-20] MEDS ORDERED: ONDANSETRON 4 MG/2 ML VIAL IVPUSH PRN (09:18)
[2020-10-20] MEDS ORDERED: DEXTROSE 5%-WATER 100 ML IVPB ONE (09:29)
[2020-10-20] MEDS ORDERED: INSULIN (LEVEMIR) 100 UNITS/ML UNITS SQ SCH ×2 (10:00→10:38)
[2020-10-20] MEDS: CARVEDILOL 25 MG TABLET (FP) PO SCH ×3 (10:59→22:08)
[2020-10-20] MEDS: CEFTRIAXONE 2 GM in DEXTROSE 5%-WATER 2 GM/100 ML BAG IVPB SCH (11:02)
[2020-10-20] MEDS: ENOXAPARIN NA (PORCINE) 100 MG/1 ML DISP.SYRIN SQ SCH ×2 (11:03→21:45)
[2020-10-20] MEDS: ZINC SULFATE 220 MG CAPSULE (FP) PO SCH ×2 (11:06→21:46)
[2020-10-20] MEDS: ASCORBIC ACID 500 MG TABLET (FP) PO SCH ×2 (11:06→21:46)
[2020-10-20] MEDS: amLODIPine BESYLATE 5 MG TABLET (FP) PO SCH (11:09)
[2020-10-20] MEDS: DEXAMETHASONE SOD PHOSPHATE 4 MG/1 ML VIAL IVPUSH SCH (11:10)
[2020-10-20] MEDS: FAMOTIDINE 20 MG/50 ML IVPB 20 MG/50 ML MG IVPB SCH (11:15)
[2020-10-20 11:35] LABS: ERYTHROCYTE SEDIMENTATION RATE 98 mm/hr (0-30)
[2020-10-20] MEDS ORDERED: INSULIN (LEVEMIR) 100 UNITS/ML UNITS SQ ONE (11:45)
[2020-10-20] MEDS ORDERED: ACETAMINOPHEN 325 MG TABLET (FP) PO ONE (16:03)
[2020-10-20] MEDS: INSULIN (LEVEMIR) 100 UNITS/ML UNITS SQ SCH (21:45)
[2020-10-20] MEDS: ROSUVASTATIN CA 20 MG TABLET PO SCH (21:46)
[2020-10-20] MEDS ORDERED: INSULIN (NOVOLOG) ASPART 100 UNITS/ML 10ML VIAL ONE ×2 (22:12→23:19)
[2020-10-20] MEDS ORDERED: PT OWN MED DRAWER 7, Y5N ONE (22:21)
[2020-10-21] MEDS: GABAPENTIN 100 MG CAPSULE PO SCH ×3 (06:26→22:04)
[2020-10-21] MEDS: INSULIN (LEVEMIR) 100 UNITS/ML UNITS SQ SCH ×2 (06:27→21:57)
[2020-10-21] MEDS: INSULIN SLIDING SCALE (NOVOLOG) 1 VIAL SQ SCH ×4 (06:27→22:30)
[2020-10-21] MEDS: INSULIN (NOVOLOG) ASPART 100 UNITS/ML 10ML VIAL SQ SCH ×3 (07:46→17:25)
[2020-10-21 08:05] LABS: CALCIUM 8.5 mg/dL (8.5-10.1)
[2020-10-21 08:06] LABS: ALBUMIN 2.6 g/dl (3.4-5.0)
[2020-10-21 08:09] LABS: CREATININE 1.8 mg/dL (0.55-1.3)
[2020-10-21 08:10] LABS: BILIRUBIN,TOTAL 0.8 mg/dL (0.2-1); TOT PROT 6.8 g/dl (6.4-8.2)
[2020-10-21 08:22] LABS: BASO % 0.3 % (0-2.0); EOS % 0.1 % (0-4.5); HEMATOCRIT 33.2 % (32.4-45.2); HEMOGLOBIN 11.1 GM/dL (10.7-15.3); LYMPH % 14.2 % (8-40); MCH 29.8 pg (25.7-33.7); MCHC 33.3 g/dl (32.0-36.0); MEAN CELL VOLUME 89.4 fl (80-96); MEAN PLT VOLUME 9.4 fl (7.5-11.1); MONO % 8.1 % (3.8-10.2); NEUT % 77.3 % (42.8-82.8); PLATELET COUNT 447 K/MM3 (134-434); RBC 3.72 M/mm3 (3.60-5.2); RDW 14.1 % (11.6-15.6); WHITE BLOOD COUNT 12.5 K/mm3 (4.0-10.0)
[2020-10-21 09:47] LABS: ANISOCYTOSIS 0; MACROCYTOSIS 0; PLATELET ESTIMATE NORMAL
[2020-10-21] MEDS ORDERED: DEXTROSE 5%-WATER 100 ML IVPB ONE (10:13)
[2020-10-21] MEDS: DEXAMETHASONE SOD PHOSPHATE 4 MG/1 ML VIAL IVPUSH SCH (11:26)
[2020-10-21] MEDS: ASCORBIC ACID 500 MG TABLET (FP) PO SCH ×2 (11:26→21:57)
[2020-10-21] MEDS: ZINC SULFATE 220 MG CAPSULE (FP) PO SCH ×2 (11:26→21:58)
[2020-10-21] MEDS: ENOXAPARIN NA (PORCINE) 100 MG/1 ML DISP.SYRIN SQ SCH ×2 (11:27→22:04)
[2020-10-21] MEDS: amLODIPine BESYLATE 5 MG TABLET (FP) PO SCH (11:27)
[2020-10-21] MEDS: CARVEDILOL 25 MG TABLET (FP) PO SCH ×2 (11:27→21:57)
[2020-10-21] MEDS: CEFTRIAXONE 2 GM in DEXTROSE 5%-WATER 2 GM/100 ML BAG IVPB SCH (11:28)
[2020-10-21] MEDS: FAMOTIDINE 20 MG/50 ML IVPB 20 MG/50 ML MG IVPB SCH (11:30)
[2020-10-21] MEDS: POLYETHYLENE GLYCOL 3350 119 GM BTL PO SCH (17:17)
[2020-10-21] MEDS: FUROSEMIDE 20 MG TABLET (FP) PO SCH (17:18)
[2020-10-21] MEDS ORDERED: PT OWN MED DRAWER 7, Y5N ONE (21:50)
[2020-10-21] MEDS: ROSUVASTATIN CA 20 MG TABLET PO SCH (21:57)
[2020-10-21] MEDS ORDERED: INSULIN (NOVOLOG) ASPART 100 UNITS/ML 10ML VIAL ONE (22:28)
[2020-10-22] MEDS: INSULIN (LEVEMIR) 100 UNITS/ML UNITS SQ SCH ×2 (06:09→21:43)
[2020-10-22] MEDS: INSULIN SLIDING SCALE (NOVOLOG) 1 VIAL SQ SCH ×4 (06:10→21:45)
[2020-10-22] MEDS: GABAPENTIN 100 MG CAPSULE PO SCH ×3 (06:11→21:43)
[2020-10-22] MEDS: INSULIN (NOVOLOG) ASPART 100 UNITS/ML 10ML VIAL SQ SCH ×3 (08:01→16:56)
[2020-10-22] MEDS ORDERED: DEXTROSE 5%-WATER 100 ML IVPB ONE (08:31)
[2020-10-22 08:38] LABS: BASO % 0.2 % (0-2.0); EOS % 0.9 % (0-4.5); HEMATOCRIT 33.2 % (32.4-45.2); LYMPH % 18.2 % (8-40); MCH 29.8 pg (25.7-33.7); MCHC 33.3 g/dl (32.0-36.0); MEAN CELL VOLUME 89.5 fl (80-96); MEAN PLT VOLUME 9.2 fl (7.5-11.1); MONO % 8.3 % (3.8-10.2); NEUT % 72.4 % (42.8-82.8); PLATELET COUNT 453 K/MM3 (134-434); RBC 3.71 M/mm3 (3.60-5.2); RDW 14.2 % (11.6-15.6); WHITE BLOOD COUNT 11.5 K/mm3 (4.0-10.0)
[2020-10-22 08:44] LABS: ALBUMIN 2.5 g/dl (3.4-5.0); CALCIUM 9.1 mg/dL (8.5-10.1)
[2020-10-22 08:48] LABS: CREATININE 1.8 mg/dL (0.55-1.3)
[2020-10-22 08:49] LABS: BILIRUBIN,TOTAL 0.1 mg/dL (0.2-1); TOT PROT 6.6 g/dl (6.4-8.2)
[2020-10-22] MEDS: DEXAMETHASONE SOD PHOSPHATE 4 MG/1 ML VIAL IVPUSH SCH (09:31)
[2020-10-22] MEDS: FUROSEMIDE 20 MG TABLET (FP) PO SCH (09:32)
[2020-10-22] MEDS: CARVEDILOL 25 MG TABLET (FP) PO SCH ×2 (09:32→21:43)
[2020-10-22] MEDS: ASCORBIC ACID 500 MG TABLET (FP) PO SCH ×2 (09:32→21:43)
[2020-10-22] MEDS: ZINC SULFATE 220 MG CAPSULE (FP) PO SCH ×2 (09:32→21:43)
[2020-10-22] MEDS: CEFTRIAXONE 2 GM in DEXTROSE 5%-WATER 2 GM/100 ML BAG IVPB SCH (09:32)
[2020-10-22] MEDS: amLODIPine BESYLATE 5 MG TABLET (FP) PO SCH (09:32)
[2020-10-22] MEDS: FAMOTIDINE 20 MG/50 ML IVPB 20 MG/50 ML MG IVPB SCH (09:32)
[2020-10-22] MEDS: ENOXAPARIN NA (PORCINE) 100 MG/1 ML DISP.SYRIN SQ SCH ×2 (09:32→21:43)
[2020-10-22] MEDS ORDERED: POLYETHYLENE GLYCOL 3350 119 GM BTL PO PRN (11:19)
[2020-10-22] MEDS: POLYETHYLENE GLYCOL 3350 119 GM BTL PO SCH (12:09)
[2020-10-22 17:07] VITALS: BMI 37.4
[2020-10-22] MEDS: DOCUSATE SODIUM 100 MG CAPSULE (FP) PO PRN (21:43)
[2020-10-22] MEDS: ROSUVASTATIN CA 20 MG TABLET PO SCH (21:43)
[2020-10-23] MEDS: GABAPENTIN 100 MG CAPSULE PO SCH ×3 (06:07→21:12)
[2020-10-23] MEDS: INSULIN (LEVEMIR) 100 UNITS/ML UNITS SQ SCH ×2 (06:07→21:30)
[2020-10-23] MEDS: INSULIN (NOVOLOG) ASPART 100 UNITS/ML 10ML VIAL SQ SCH ×3 (06:09→16:48)
[2020-10-23] MEDS: INSULIN SLIDING SCALE (NOVOLOG) 1 VIAL SQ SCH ×4 (06:10→21:31)
[2020-10-23 07:36] LABS: BASO % 0.5 % (0-2.0); EOS % 0.4 % (0-4.5); HEMATOCRIT 32.4 % (32.4-45.2); HEMOGLOBIN 10.8 GM/dL (10.7-15.3); LYMPH % 16.7 % (8-40); MCH 29.8 pg (25.7-33.7); MCHC 33.4 g/dl (32.0-36.0); MEAN CELL VOLUME 89.3 fl (80-96); MEAN PLT VOLUME 9.2 fl (7.5-11.1); MONO % 8.3 % (3.8-10.2); NEUT % 74.1 % (42.8-82.8); PLATELET COUNT 431 K/MM3 (134-434); RBC 3.63 M/mm3 (3.60-5.2); RDW 13.7 % (11.6-15.6); WHITE BLOOD COUNT 10.6 K/mm3 (4.0-10.0)
[2020-10-23] MEDS: FAMOTIDINE 20 MG/50 ML IVPB 20 MG/50 ML MG IVPB SCH (09:11)
[2020-10-23 09:12] LABS: ERYTHROCYTE SEDIMENTATION RATE 101 mm/hr (0-30)
[2020-10-23] MEDS: FUROSEMIDE 20 MG TABLET (FP) PO SCH (09:12)
[2020-10-23] MEDS: ZINC SULFATE 220 MG CAPSULE (FP) PO SCH ×2 (09:12→21:12)
[2020-10-23] MEDS: ASCORBIC ACID 500 MG TABLET (FP) PO SCH ×2 (09:12→21:12)
[2020-10-23] MEDS: DEXAMETHASONE SOD PHOSPHATE 4 MG/1 ML VIAL IVPUSH SCH (09:12)
[2020-10-23] MEDS: ENOXAPARIN NA (PORCINE) 100 MG/1 ML DISP.SYRIN SQ SCH ×2 (09:12→21:12)
[2020-10-23] MEDS: amLODIPine BESYLATE 5 MG TABLET (FP) PO SCH (09:12)
[2020-10-23] MEDS: CARVEDILOL 25 MG TABLET (FP) PO SCH ×2 (09:13→21:12)
[2020-10-23 09:29] LABS: CALCIUM 9.2 mg/dL (8.5-10.1)
[2020-10-23 09:30] LABS: ALBUMIN 2.6 g/dl (3.4-5.0); MAGNESIUM 2.3 mg/dL (1.8-2.4)
[2020-10-23 09:33] LABS: CREATININE 1.9 mg/dL (0.55-1.3); PHOSPHOROUS 3.8 mg/dL (2.5-4.9)
[2020-10-23 09:34] LABS: BILIRUBIN,TOTAL 0.1 mg/dL (0.2-1); TOT PROT 6.6 g/dl (6.4-8.2)
[2020-10-23] MEDS ORDERED: INSULIN (NOVOLOG) ASPART 100 UNITS/ML 10ML VIAL ONE (11:27)
[2020-10-23] MEDS: ROSUVASTATIN CA 20 MG TABLET PO SCH (21:12)
[2020-10-23] MEDS: DOCUSATE SODIUM 100 MG CAPSULE (FP) PO PRN (21:12)
[2020-10-24] MEDS: INSULIN (NOVOLOG) ASPART 100 UNITS/ML 10ML VIAL SQ SCH ×3 (06:18→17:28)
[2020-10-24] MEDS: GABAPENTIN 100 MG CAPSULE PO SCH ×3 (06:18→23:26)
[2020-10-24] MEDS: INSULIN (LEVEMIR) 100 UNITS/ML UNITS SQ SCH ×2 (06:18→23:12)
[2020-10-24] MEDS: INSULIN SLIDING SCALE (NOVOLOG) 1 VIAL SQ SCH ×4 (06:30→23:26)
[2020-10-24 08:33] LABS: BASO % 0.5 % (0-2.0); EOS % 0.7 % (0-4.5); HEMATOCRIT 33.9 % (32.4-45.2); HEMOGLOBIN 11.2 GM/dL (10.7-15.3); MCH 29.6 pg (25.7-33.7); MCHC 33.2 g/dl (32.0-36.0); MEAN CELL VOLUME 89.3 fl (80-96); MEAN PLT VOLUME 9.5 fl (7.5-11.1); NEUT % 73.8 % (42.8-82.8); PLATELET COUNT 416 K/MM3 (134-434); RBC 3.79 M/mm3 (3.60-5.2); WHITE BLOOD COUNT 12.5 K/mm3 (4.0-10.0)
[2020-10-24 09:06] LABS: ALBUMIN 2.7 g/dl (3.4-5.0); BLOOD UREA NITROGEN 49.1 mg/dL (7-18); CALCIUM 9.2 mg/dL (8.5-10.1); CO2 26 mmol/L (21-32)
[2020-10-24 09:07] LABS: GLUCOSE,RANDOM 170 mg/dL (74-106); MAGNESIUM 2.2 mg/dL (1.8-2.4)
[2020-10-24 09:09] LABS: SGPT/ALT 213 U/L (13-61)
[2020-10-24 09:10] LABS: CREATININE 1.8 mg/dL (0.55-1.3); LDH 367 U/L (84-246); SGOT/AST 75 U/L (15-37)
[2020-10-24 09:11] LABS: BILIRUBIN,TOTAL 0.3 mg/dL (0.2-1)
[2020-10-24 09:12] LABS: ALK PHOS 86 U/L (45-117); ANION GAP 6 MMOL/L (8-16); CHLORIDE 108 mmol/L (98-107); SODIUM 140 mmol/L (136-145)
[2020-10-24 10:23] LABS: ERYTHROCYTE SEDIMENTATION RATE 107 mm/hr (0-30)
[2020-10-24] MEDS: CARVEDILOL 25 MG TABLET (FP) PO SCH ×2 (12:18→23:09)
[2020-10-24] MEDS: FAMOTIDINE 20 MG/50 ML IVPB 20 MG/50 ML MG IVPB SCH (12:18)
[2020-10-24] MEDS: FUROSEMIDE 20 MG TABLET (FP) PO SCH (12:18)
[2020-10-24] MEDS: ASCORBIC ACID 500 MG TABLET (FP) PO SCH ×2 (12:18→23:09)
[2020-10-24] MEDS: DEXAMETHASONE SOD PHOSPHATE 4 MG/1 ML VIAL IVPUSH SCH (12:19)
[2020-10-24] MEDS: amLODIPine BESYLATE 5 MG TABLET (FP) PO SCH (12:19)
[2020-10-24] MEDS: ZINC SULFATE 220 MG CAPSULE (FP) PO SCH ×2 (12:19→23:09)
[2020-10-24] MEDS: ENOXAPARIN NA (PORCINE) 100 MG/1 ML DISP.SYRIN SQ SCH ×2 (12:19→23:08)
[2020-10-24] MEDS: ROSUVASTATIN CA 20 MG TABLET PO SCH (23:09)
[2020-10-24] MEDS ORDERED: INSULIN (LEVEMIR) 100 UNITS/ML UNITS SQ ONE (23:11)
[2020-10-25] MEDS: GABAPENTIN 100 MG CAPSULE PO SCH ×3 (06:03→21:37)
[2020-10-25] MEDS: INSULIN (LEVEMIR) 100 UNITS/ML UNITS SQ SCH ×2 (06:23→22:40)
[2020-10-25] MEDS: INSULIN (NOVOLOG) ASPART 100 UNITS/ML 10ML VIAL SQ SCH ×3 (06:24→16:19)
[2020-10-25] MEDS: INSULIN SLIDING SCALE (NOVOLOG) 1 VIAL SQ SCH ×4 (06:24→22:38)
[2020-10-25 08:11] LABS: BASO % 0.9 % (0-2.0); HEMATOCRIT 32.7 % (32.4-45.2); HEMOGLOBIN 10.9 GM/dL (10.7-15.3); LYMPH % 19.8 % (8-40); MCH 30.1 pg (25.7-33.7); MCHC 33.2 g/dl (32.0-36.0); MEAN CELL VOLUME 90.7 fl (80-96); MEAN PLT VOLUME 9.9 fl (7.5-11.1); MONO % 6.6 % (3.8-10.2); NEUT % 72.7 % (42.8-82.8); PLATELET COUNT 362 K/MM3 (134-434); RBC 3.61 M/mm3 (3.60-5.2); WHITE BLOOD COUNT 9.5 K/mm3 (4.0-10.0)
[2020-10-25 08:31] LABS: LDH 373 U/L (84-246)
[2020-10-25 08:38] LABS: CHLORIDE 110 mmol/L (98-107); SODIUM 141 mmol/L (136-145)
[2020-10-25 08:41] LABS: GLUCOSE,RANDOM 231 mg/dL (74-106)
[2020-10-25 08:42] LABS: ALBUMIN 2.6 g/dl (3.4-5.0); ANION GAP 30 MMOL/L (8-16); BLOOD UREA NITROGEN 50.2 mg/dL (7-18)
[2020-10-25 08:44] LABS: CREATININE 1.9 mg/dL (0.55-1.3)
[2020-10-25 08:45] LABS: PHOSPHOROUS 4.4 mg/dL (2.5-4.9); SGOT/AST 76 U/L (15-37); SGPT/ALT 239 U/L (13-61); TOT PROT 6.7 g/dl (6.4-8.2)
[2020-10-25 08:47] LABS: ALK PHOS 83 U/L (45-117)
[2020-10-25 09:29] LABS: CALCIUM 9.2 mg/dL (8.5-10.1)
[2020-10-25] MEDS: ENOXAPARIN NA (PORCINE) 100 MG/1 ML DISP.SYRIN SQ SCH ×2 (09:29→21:37)
[2020-10-25] MEDS: FAMOTIDINE 20 MG/50 ML IVPB 20 MG/50 ML MG IVPB SCH (09:29)
[2020-10-25] MEDS: ASCORBIC ACID 500 MG TABLET (FP) PO SCH ×2 (09:30→21:37)
[2020-10-25] MEDS: amLODIPine BESYLATE 5 MG TABLET (FP) PO SCH (09:30)
[2020-10-25] MEDS: FUROSEMIDE 20 MG TABLET (FP) PO SCH (09:30)
[2020-10-25] MEDS: DEXAMETHASONE SOD PHOSPHATE 4 MG/1 ML VIAL IVPUSH SCH (09:30)
[2020-10-25] MEDS: ZINC SULFATE 220 MG CAPSULE (FP) PO SCH ×2 (09:30→21:37)
[2020-10-25 09:39] LABS: MAGNESIUM 2.6 mg/dL (1.8-2.4)
[2020-10-25 09:40] LABS: BILIRUBIN,TOTAL 0.1 mg/dL (0.2-1)
[2020-10-25] MEDS: CARVEDILOL 25 MG TABLET (FP) PO SCH ×2 (11:00→21:37)
[2020-10-25 11:26] LABS: ERYTHROCYTE SEDIMENTATION RATE 97 mm/hr (0-30)
[2020-10-25 15:30] LABS: CO2 QNS mmol/L (21-32)
[2020-10-25] MEDS: DOCUSATE SODIUM 100 MG CAPSULE (FP) PO PRN (17:11)
[2020-10-25 18:12] LABS: CALCIUM 9.1 mg/dL (8.5-10.1)
[2020-10-25 18:16] LABS: CREATININE 1.9 mg/dL (0.55-1.3)
[2020-10-25] MEDS: ROSUVASTATIN CA 20 MG TABLET PO SCH (21:37)
[2020-10-25] MEDS: SODIUM ZIRCONIUM CYCLOSILICATE (LOKELMA) 10 GM PACKET PO SCH (21:37)
[2020-10-26] MEDS: GABAPENTIN 100 MG CAPSULE PO SCH ×3 (06:13→21:51)
[2020-10-26] MEDS: INSULIN (NOVOLOG) ASPART 100 UNITS/ML 10ML VIAL SQ SCH ×3 (06:13→16:34)
[2020-10-26] MEDS: INSULIN SLIDING SCALE (NOVOLOG) 1 VIAL SQ SCH ×5 (06:14→23:29)
[2020-10-26] MEDS: INSULIN (LEVEMIR) 100 UNITS/ML UNITS SQ SCH ×2 (06:15→21:50)
[2020-10-26 08:06] LABS: BASO % 0.2 % (0-2.0); HEMATOCRIT 32.9 % (32.4-45.2); HEMOGLOBIN 11.1 GM/dL (10.7-15.3); LYMPH % 18.5 % (8-40); MCH 30.2 pg (25.7-33.7); MCHC 33.8 g/dl (32.0-36.0); MEAN CELL VOLUME 89.3 fl (80-96); MEAN PLT VOLUME 10.2 fl (7.5-11.1); MONO % 7.9 % (3.8-10.2); NEUT % 73.4 % (42.8-82.8); PLATELET COUNT 328 K/MM3 (134-434); RBC 3.68 M/mm3 (3.60-5.2); WHITE BLOOD COUNT 10.7 K/mm3 (4.0-10.0)
[2020-10-26 08:23] LABS: CHLORIDE 108 mmol/L (98-107); SODIUM 139 mmol/L (136-145)
[2020-10-26 08:30] LABS: CALCIUM 9.1 mg/dL (8.5-10.1)
[2020-10-26 08:31] LABS: ALBUMIN 2.7 g/dl (3.4-5.0); ANION GAP 5 MMOL/L (8-16); BLOOD UREA NITROGEN 51.9 mg/dL (7-18); CO2 26 mmol/L (21-32); GLUCOSE,RANDOM 227 mg/dL (74-106); MAGNESIUM 2.3 mg/dL (1.8-2.4)
[2020-10-26 08:32] LABS: SGPT/ALT 230 U/L (13-61)
[2020-10-26 08:33] LABS: BILIRUBIN,TOTAL 0.1 mg/dL (0.2-1); TOT PROT 6.6 g/dl (6.4-8.2)
[2020-10-26 08:34] LABS: ALK PHOS 84 U/L (45-117); CREATININE 1.9 mg/dL (0.55-1.3); SGOT/AST 67 U/L (15-37)
[2020-10-26 08:35] LABS: PHOSPHOROUS 4.2 mg/dL (2.5-4.9)
[2020-10-26 08:39] LABS: LDH 315 U/L (84-246)
[2020-10-26] MEDS: DEXAMETHASONE 4 MG TABLET (FP) PO SCH (09:50)
[2020-10-26] MEDS: ENOXAPARIN NA (PORCINE) 100 MG/1 ML DISP.SYRIN SQ SCH ×2 (09:50→21:51)
[2020-10-26] MEDS: FUROSEMIDE 20 MG TABLET (FP) PO SCH (09:50)
[2020-10-26] MEDS: SODIUM ZIRCONIUM CYCLOSILICATE (LOKELMA) 10 GM PACKET PO SCH (09:50)
[2020-10-26] MEDS: ZINC SULFATE 220 MG CAPSULE (FP) PO SCH ×2 (09:52→21:51)
[2020-10-26] MEDS: amLODIPine BESYLATE 5 MG TABLET (FP) PO SCH (09:52)
[2020-10-26] MEDS: FAMOTIDINE 20 MG/50 ML IVPB 20 MG/50 ML MG IVPB SCH (09:53)
[2020-10-26] MEDS: ASCORBIC ACID 500 MG TABLET (FP) PO SCH ×2 (09:53→21:51)
[2020-10-26] MEDS ORDERED: VALSARTAN 80 MG TABLET PO SCH (10:00)
[2020-10-26 10:14] LABS: ERYTHROCYTE SEDIMENTATION RATE 94 mm/hr (0-30)
[2020-10-26] MEDS: CARVEDILOL 25 MG TABLET (FP) PO SCH ×2 (11:25→21:51)
[2020-10-26] MEDS: ROSUVASTATIN CA 20 MG TABLET PO SCH (21:51)
[2020-10-27] MEDS ORDERED: INSULIN (NOVOLOG) ASPART 100 UNITS/ML 10ML VIAL SQ ONE (02:24)
[2020-10-27] MEDS: GABAPENTIN 100 MG CAPSULE PO SCH ×3 (06:03→23:08)
[2020-10-27] MEDS: INSULIN (NOVOLOG) ASPART 100 UNITS/ML 10ML VIAL SQ SCH ×3 (06:03→16:31)
[2020-10-27] MEDS: INSULIN SLIDING SCALE (NOVOLOG) 1 VIAL SQ SCH ×4 (06:04→23:28)
[2020-10-27] MEDS: INSULIN (LEVEMIR) 100 UNITS/ML UNITS SQ SCH ×2 (06:08→23:23)
[2020-10-27 08:23] LABS: BASO % 0.3 % (0-2.0); HEMATOCRIT 31.8 % (32.4-45.2); HEMOGLOBIN 10.5 GM/dL (10.7-15.3); LYMPH % 18.3 % (8-40); MCH 29.8 pg (25.7-33.7); MEAN CELL VOLUME 90.3 fl (80-96); MONO % 8.1 % (3.8-10.2); NEUT % 73.3 % (42.8-82.8); PLATELET COUNT 284 K/MM3 (134-434); RBC 3.52 M/mm3 (3.60-5.2); WHITE BLOOD COUNT 8.8 K/mm3 (4.0-10.0)
[2020-10-27] MEDS ORDERED: ACETAMINOPHEN 325 MG TABLET (FP) PO PRN (08:33)
[2020-10-27 08:39] LABS: ALBUMIN 2.7 g/dl (3.4-5.0); BLOOD UREA NITROGEN 63.3 mg/dL (7-18); CALCIUM 9.2 mg/dL (8.5-10.1)
[2020-10-27 08:42] LABS: CREATININE 1.9 mg/dL (0.55-1.3)
[2020-10-27 08:44] LABS: BILIRUBIN,TOTAL 0.9 mg/dL (0.2-1); TOT PROT 6.4 g/dl (6.4-8.2)
[2020-10-27] MEDS: FUROSEMIDE 20 MG TABLET (FP) PO SCH (09:13)
[2020-10-27] MEDS: CARVEDILOL 25 MG TABLET (FP) PO SCH ×2 (09:13→23:08)
[2020-10-27] MEDS: ASCORBIC ACID 500 MG TABLET (FP) PO SCH ×2 (09:13→23:09)
[2020-10-27] MEDS: DEXAMETHASONE 4 MG TABLET (FP) PO SCH (09:13)
[2020-10-27] MEDS: FAMOTIDINE 20 MG/50 ML IVPB 20 MG/50 ML MG IVPB SCH ×2 (09:13→10:48)
[2020-10-27] MEDS: ENOXAPARIN NA (PORCINE) 100 MG/1 ML DISP.SYRIN SQ SCH ×2 (09:13→23:22)
[2020-10-27] MEDS: amLODIPine BESYLATE 5 MG TABLET (FP) PO SCH (09:13)
[2020-10-27] MEDS: ZINC SULFATE 220 MG CAPSULE (FP) PO SCH ×2 (09:14→23:08)
[2020-10-27] MEDS: FAMOTIDINE 10 MG TABLET PO SCH (11:10)
[2020-10-27] MEDS: ROSUVASTATIN CA 20 MG TABLET PO SCH (23:08)
[2020-10-28] MEDS: GABAPENTIN 100 MG CAPSULE PO SCH ×3 (07:06→22:50)
[2020-10-28] MEDS: INSULIN (LEVEMIR) 100 UNITS/ML UNITS SQ SCH ×2 (07:07→22:50)
[2020-10-28] MEDS: INSULIN (NOVOLOG) ASPART 100 UNITS/ML 10ML VIAL SQ SCH ×3 (07:09→16:34)
[2020-10-28] MEDS: INSULIN SLIDING SCALE (NOVOLOG) 1 VIAL SQ SCH ×4 (07:09→22:50)
[2020-10-28 09:03] LABS: BASO % 0.2 % (0-2.0); HEMATOCRIT 31.1 % (32.4-45.2); HEMOGLOBIN 10.3 GM/dL (10.7-15.3); LYMPH % 20.2 % (8-40); MCH 29.9 pg (25.7-33.7); MCHC 33.2 g/dl (32.0-36.0); MEAN CELL VOLUME 90.1 fl (80-96); MEAN PLT VOLUME 11.4 fl (7.5-11.1); NEUT % 71.6 % (42.8-82.8); PLATELET COUNT 263 K/MM3 (134-434); RBC 3.45 M/mm3 (3.60-5.2); WHITE BLOOD COUNT 10.3 K/mm3 (4.0-10.0)
[2020-10-28 09:16] LABS: CALCIUM 8.9 mg/dL (8.5-10.1)
[2020-10-28] MEDS: ENOXAPARIN NA (PORCINE) 100 MG/1 ML DISP.SYRIN SQ SCH (09:16)
[2020-10-28 09:17] LABS: ALBUMIN 2.7 g/dl (3.4-5.0); BLOOD UREA NITROGEN 58.9 mg/dL (7-18)
[2020-10-28] MEDS: CARVEDILOL 25 MG TABLET (FP) PO SCH ×2 (09:17→22:50)
[2020-10-28] MEDS: DEXAMETHASONE 4 MG TABLET (FP) PO SCH (09:17)
[2020-10-28] MEDS: amLODIPine BESYLATE 5 MG TABLET (FP) PO SCH (09:18)
[2020-10-28] MEDS: FUROSEMIDE 20 MG TABLET (FP) PO SCH (09:18)
[2020-10-28] MEDS: ASCORBIC ACID 500 MG TABLET (FP) PO SCH ×2 (09:18→22:50)
[2020-10-28] MEDS: FAMOTIDINE 10 MG TABLET PO SCH (09:19)
[2020-10-28 09:20] LABS: CREATININE 1.9 mg/dL (0.55-1.3)
[2020-10-28] MEDS: ZINC SULFATE 220 MG CAPSULE (FP) PO SCH ×2 (09:21→22:50)
[2020-10-28 09:22] LABS: BILIRUBIN,TOTAL 0.3 mg/dL (0.2-1); TOT PROT 6.3 g/dl (6.4-8.2)
[2020-10-28] MEDS: ROSUVASTATIN CA 20 MG TABLET PO SCH (22:50)
[2020-10-29] MEDS: INSULIN (LEVEMIR) 100 UNITS/ML UNITS SQ SCH ×2 (06:42→21:29)
[2020-10-29] MEDS: GABAPENTIN 100 MG CAPSULE PO SCH ×3 (06:42→21:29)
[2020-10-29] MEDS: INSULIN SLIDING SCALE (NOVOLOG) 1 VIAL SQ SCH ×4 (06:43→21:30)
[2020-10-29] MEDS: INSULIN (NOVOLOG) ASPART 100 UNITS/ML 10ML VIAL SQ SCH ×2 (06:43→11:19)
[2020-10-29 09:52] LABS: BLOOD UREA NITROGEN 63.6 mg/dL (7-18)
[2020-10-29 09:53] LABS: CALCIUM 9.1 mg/dL (8.5-10.1)
[2020-10-29 09:54] LABS: CREATININE 2.1 mg/dL (0.55-1.3)
[2020-10-29] MEDS: ZINC SULFATE 220 MG CAPSULE (FP) PO SCH ×2 (10:05→21:29)
[2020-10-29] MEDS: DEXAMETHASONE 4 MG TABLET (FP) PO SCH (10:06)
[2020-10-29] MEDS: ASCORBIC ACID 500 MG TABLET (FP) PO SCH ×2 (10:06→21:29)
[2020-10-29] MEDS: amLODIPine BESYLATE 5 MG TABLET (FP) PO SCH (10:07)
[2020-10-29] MEDS: FUROSEMIDE 20 MG TABLET (FP) PO SCH (10:07)
[2020-10-29] MEDS: CARVEDILOL 25 MG TABLET (FP) PO SCH ×2 (10:07→21:29)
[2020-10-29] MEDS: HEPARIN NA (PORCINE) 5,000 UNITS/ML 1ML VIAL SQ SCH ×2 (10:08→21:29)
[2020-10-29] MEDS: FAMOTIDINE 10 MG TABLET PO SCH (10:09)
[2020-10-29] MEDS: ROSUVASTATIN CA 20 MG TABLET PO SCH (21:29)
[2020-10-30] MEDS: GABAPENTIN 100 MG CAPSULE PO SCH ×2 (06:54→13:38)
[2020-10-30] MEDS: INSULIN (LEVEMIR) 100 UNITS/ML UNITS SQ SCH (06:54)
[2020-10-30] MEDS: INSULIN SLIDING SCALE (NOVOLOG) 1 VIAL SQ SCH ×3 (06:54→16:28)
[2020-10-30 07:39] LABS: BASO % 0.3 % (0-2.0); CHLORIDE 105 mmol/L (98-107); EOS % 0.3 % (0-4.5); HEMATOCRIT 31.5 % (32.4-45.2); HEMOGLOBIN 10.5 GM/dL (10.7-15.3); LYMPH % 13.3 % (8-40); MCH 29.9 pg (25.7-33.7); MCHC 33.4 g/dl (32.0-36.0); MEAN CELL VOLUME 89.4 fl (80-96); MONO % 6.1 % (3.8-10.2); PLATELET COUNT 215 K/MM3 (134-434); RBC 3.52 M/mm3 (3.60-5.2); RDW 14.2 % (11.6-15.6); SODIUM 136 mmol/L (136-145); WHITE BLOOD COUNT 12.7 K/mm3 (4.0-10.0)
[2020-10-30 07:50] LABS: ALBUMIN 2.8 g/dl (3.4-5.0); ANION GAP 6 MMOL/L (8-16); BILIRUBIN,TOTAL 0.7 mg/dL (0.2-1); CALCIUM 8.9 mg/dL (8.5-10.1); CO2 24 mmol/L (21-32)
[2020-10-30 07:51] LABS: ALK PHOS 73 U/L (45-117); BLOOD UREA NITROGEN 64.2 mg/dL (7-18); GLUCOSE,RANDOM 250 mg/dL (74-106); MAGNESIUM 2.4 mg/dL (1.8-2.4)
[2020-10-30 07:53] LABS: SGPT/ALT 179 U/L (13-61)
[2020-10-30 07:54] LABS: PHOSPHOROUS 4.7 mg/dL (2.5-4.9); SGOT/AST 47 U/L (15-37)
[2020-10-30 07:55] LABS: TOT PROT 6.3 g/dl (6.4-8.2)
[2020-10-30 08:03] LABS: LDH 286 U/L (84-246)
[2020-10-30] MEDS: amLODIPine BESYLATE 5 MG TABLET (FP) PO SCH (09:04)
[2020-10-30] MEDS: HEPARIN NA (PORCINE) 5,000 UNITS/ML 1ML VIAL SQ SCH (09:04)
[2020-10-30] MEDS: FUROSEMIDE 20 MG TABLET (FP) PO SCH (09:04)
[2020-10-30] MEDS: CARVEDILOL 25 MG TABLET (FP) PO SCH (09:04)
[2020-10-30] MEDS: ZINC SULFATE 220 MG CAPSULE (FP) PO SCH (09:04)
[2020-10-30] MEDS: FAMOTIDINE 10 MG TABLET PO SCH (09:04)
[2020-10-30] MEDS: ASCORBIC ACID 500 MG TABLET (FP) PO SCH (09:04)
[2020-10-30 10:34] LABS: ERYTHROCYTE SEDIMENTATION RATE 100 mm/hr (0-30)
[2020-10-30 16:43] VITALS: BP 141/80; PULSE 66; TEMP 97.9
== END 2020-10-30 17:30 | disposition home health service (06) | DRG 177 ==
LOC: JER 12:42 → JERBED 16:11 → J4S 10-16 20:36 → J7W 10-19 16:53
PROVIDERS: ATTEND Internal Medicine
PROC: 8E0ZXY6 Isolation (ICD-10-PCS; 2020-10-15)
PROC: XW13325 Transfusion of Convalescent Plasma (Nonautologous) into Peripheral Vein, Percutaneous Approach, New Technology Group 5 (ICD-10-PCS; principal; 2020-10-17)
DX: U07.1 COVID-19 (principal); J12.82 Pneumonia due to coronavirus disease 2019; J96.01 Acute respiratory failure with hypoxia; N17.9 Acute kidney failure, unspecified; E87.1 Hypo-osmolality and hyponatremia; R78.81 Bacteremia; I25.10 Atherosclerotic heart disease of native coronary artery without angina pectoris; B95.8 Unspecified staphylococcus as the cause of diseases classified elsewhere; E66.9 Obesity, unspecified; Z68.37 Body mass index [BMI] 37.0-37.9, adult; I12.9 Hypertensive chronic kidney disease with stage 1 through stage 4 chronic kidney disease, or unspecified chronic kidney disease; E11.22 Type 2 diabetes mellitus with diabetic chronic kidney disease; N18.9 Chronic kidney disease, unspecified; E11.40 Type 2 diabetes mellitus with diabetic neuropathy, unspecified; E78.5 Hyperlipidemia, unspecified; E11.65 Type 2 diabetes mellitus with hyperglycemia; I25.2 Old myocardial infarction; R29.6 Repeated falls; E86.0 Dehydration; Z95.5 Presence of coronary angioplasty implant and graft
CPT/HCPCS: 36415; 36430; 71045-TC-FY; 80048; 80053; 81003; 82565; 82728; 82803; 82962; 83036; 83605; 83615; 83735; 83880; 84100; 84484; 84540; 85025; 85379; 85610; 85651; 85730; 86140; 86850; 86900; 86901; 87040; 87186; 87804; 87899; 93005; 93010; 97116-GP; 97162-GP; 99285-25; C9803; G0480; J1644; P9017; U0003

== ENCOUNTER 2022-10-08 11:08 | Emergency (ER) | payer OTHER ==
[2022-10-08 11:39] VITALS: TEMP 98.5; BMI 37.8
[2022-10-08 15:34] VITALS: BP 120/68; PULSE 88; RESP 18
== END 2022-10-08 16:03 | disposition home or self-care (01) ==
LOC: JER 11:08
DX: U07.1 COVID-19 (principal)
CPT/HCPCS: 71045-TC-FY; 93005; 93010; 99284-25

== ENCOUNTER 2023-06-16 14:37 | Observation (INO) | payer OTHER ==
[2023-06-16] MEDS ORDERED: SODIUM CHLORIDE 0.9% 500 ML INFUS.BAG IV ONE (15:55)
[2023-06-16 16:47] LABS: BASO % 0.7 % (0-2.0); EOS % 1.2 % (0-4.5); HEMATOCRIT 35.4 % (32.4-45.2); HEMOGLOBIN 11.9 GM/dL (10.7-15.3); LYMPH % 41.8 % (8-40); MCH 30.4 pg (25.7-33.7); MCHC 33.5 g/dl (32.0-36.0); MEAN CELL VOLUME 90.5 fl (80-96); MEAN PLT VOLUME 9.3 fl (7.5-11.1); MONO % 7.8 % (3.8-10.2); NEUT % 48.5 % (42.8-82.8); PLATELET COUNT 288 10^3/uL (134-434); RBC 3.91 M/mm3 (3.60-5.2); RDW 15.3 % (11.6-15.6); WHITE BLOOD COUNT 9.7 K/mm3 (4.0-10.0)
[2023-06-16 17:05] LABS: POTASSIUM 4.1 mmol/L (3.5-5.1)
[2023-06-16 17:07] LABS: ALBUMIN 3.3 g/dl (3.4-5.0); BLOOD UREA NITROGEN 30.4 mg/dL (7-18)
[2023-06-16 17:10] LABS: CREATININE 2.4 mg/dL (0.55-1.3)
[2023-06-16 17:11] LABS: BILIRUBIN,TOTAL 0.2 mg/dL (0.2-1)
[2023-06-16 17:12] LABS: TOT PROT 7.4 g/dl (6.4-8.2)
[2023-06-16 17:19] LABS: INR 1.1 (0.83-1.09); PROTHROMBIN TIME (PATIENT) 12.7 SEC (9.7-13.0)
[2023-06-16 17:22] LABS: ACTIVATED PTT 28.4 SECONDS (25.2-36.5)
[2023-06-16 18:41] LABS: URINE APPEARANCE CLEAR; URINE BILIRUBIN NEGATIVE (NEGATIVE); URINE COLOR YELLOW; URINE GLUCOSE (UA) NEGATIVE (NEGATIVE); URINE KETONE NEGATIVE (NEGATIVE); URINE LEUK ESTERASE NEGATIVE (NEGATIVE); URINE NITRITE NEGATIVE (NEGATIVE); URINE PROTEIN NEGATIVE (NEGATIVE); URINE UROBILINOGEN 0.2 mg/dL (0.2-1.0)
[2023-06-16] MEDS ORDERED: DOCUSATE SODIUM 100 MG CAPSULE (FP) PO PRN (22:26)
[2023-06-16] MEDS ORDERED: ACETAMINOPHEN 325 MG TABLET (FP) PO PRN (22:26)
[2023-06-17] MEDS ORDERED: MECLIZINE HCL 12.5 MG TABLET PO PRN (01:50)
[2023-06-17 02:46] VITALS: BMI 34.4
[2023-06-17] MEDS: INSULIN SLIDING SCALE (NOVOLOG) 1 VIAL SQ SCH ×4 (06:10→21:34)
[2023-06-17 08:45] LABS: BASO % 0.4 % (0-2.0); EOS % 1.6 % (0-4.5); HEMATOCRIT 33.5 % (32.4-45.2); HEMOGLOBIN 11.6 GM/dL (10.7-15.3); MCHC 34.6 g/dl (32.0-36.0); MEAN CELL VOLUME 89.7 fl (80-96); MEAN PLT VOLUME 9.2 fl (7.5-11.1); MONO % 6.9 % (3.8-10.2); NEUT % 56.1 % (42.8-82.8); PLATELET COUNT 281 10^3/uL (134-434); RBC 3.74 M/mm3 (3.60-5.2); RDW 15.2 % (11.6-15.6); WHITE BLOOD COUNT 9.2 K/mm3 (4.0-10.0)
[2023-06-17] MEDS: FUROSEMIDE 40 MG TABLET (FP) PO SCH ×2 (09:36→09:37)
[2023-06-17] MEDS: CARVEDILOL 25 MG TABLET (FP) PO SCH ×2 (09:36→21:34)
[2023-06-17 12:45] LABS: BLOOD UREA NITROGEN 26.3 mg/dL (7-18)
[2023-06-17 12:53] LABS: CALCIUM 9.2 mg/dL (8.5-10.1)
[2023-06-17] MEDS ORDERED: ROSUVASTATIN CA 20 MG TABLET PO SCH (22:00)
[2023-06-17] MEDS ORDERED: ROSUVASTATIN CA 10 MG TABLET PO SCH (22:00)
[2023-06-18 05:33] VITALS: RESP 18; TEMP 98.2
[2023-06-18] MEDS: INSULIN SLIDING SCALE (NOVOLOG) 1 VIAL SQ SCH ×2 (06:36→12:03)
[2023-06-18] MEDS: CARVEDILOL 25 MG TABLET (FP) PO SCH (10:30)
[2023-06-18] MEDS: FUROSEMIDE 40 MG TABLET (FP) PO SCH (10:30)
[2023-06-18 11:29] VITALS: BP 140/72; PULSE 92
== END 2023-06-18 12:00 | disposition home or self-care (01) ==
LOC: JER 14:37 → JERBED 18:53 → J4W 06-17 01:35
PROVIDERS: ADMIT Internal Medicine; ATTEND Family Medicine
PROC: 3E0337Z Introduction of Electrolytic and Water Balance Substance into Peripheral Vein, Percutaneous Approach (ICD-10-PCS; principal; 2023-06-16)
DX: E11.22 Type 2 diabetes mellitus with diabetic chronic kidney disease (principal); I25.10 Atherosclerotic heart disease of native coronary artery without angina pectoris; I13.10 Hypertensive heart and chronic kidney disease without heart failure, with stage 1 through stage 4 chronic kidney disease, or unspecified chronic kidney disease; N18.9 Chronic kidney disease, unspecified; Z86.16 Personal history of COVID-19; I10 Essential (primary) hypertension
CPT/HCPCS: 0241U-QW; 36415; 70450-TC; 71045-TC-FY; 80048; 80053; 81003; 82962; 83735; 84100; 84484; 85025; 85610; 85730; 87086; 93005; 93010; 93880-TC; 97116-GP; 97161-GP; 99285-25; G0378